=== PATIENT | male | born 1935 | race Caucasian/White ===

== ENCOUNTER 2020-12-12 06:13 | Day surgery (SDC) | payer MEDICARE, BC ==
[2020-12-10 12:02] LABS: BASOPHILS % (AUTO) 0.6 % (0-1); EOSINOPHILS # (AUTO) 0.1 X10'3 (0-0.9); EOSINOPHILS % (AUTO) 2.8 % (0-6); HEMATOCRIT 41.4 % (42.0-52.0); HEMOGLOBIN 14.2 g/dl (14.0-17.9); LYMPHOCYTES # (AUTO) 0.9 X10'3 (1.1-4.8); LYMPHOCYTES % (AUTO) 21.7 % (21-51); MEAN CORPUSCULAR HEMOGLOBIN 33.4 PG (27.0-31.0); MEAN CORPUSCULAR HGB CONC 34.3 g/dL (33.0-36.5); MEAN CORPUSCULAR VOLUME 97.4 FL (78-98); MEAN PLATELET VOLUME 8.7 FL (7.4-10.4); MONOCYTES # (AUTO) 0.4 X10'3 (0-0.9); MONOCYTES % (AUTO) 10.6 % (2-12); NEUTROPHILS # (AUTO) 2.6 X10'3 (1.8-7.7); NEUTROPHILS % (AUTO) 64.3 % (42-75); PLATELET COUNT 119 X10'3 (140-440); RED BLOOD COUNT 4.25 X10'6 (4.70-6.10); RED CELL DISTRIBUTION WIDTH 13.4 % (11.5-14.5); WHITE BLOOD COUNT 4.1 X10'3 (4.5-11.0)
[2020-12-10 12:14] LABS: PARTIAL THROMBOPLASTIN TIME 25 SECONDS (22-32)
[2020-12-10 12:16] LABS: ALANINE AMINOTRANSFERASE 15 U/L (12-78); ALBUMIN 3.5 G/DL (3.4-5.0); ALBUMIN/GLOBULIN RATIO 0.9 (1.1-1.5); ALKALINE PHOSPHATASE 65 IU/L (46-116); ANION GAP 7 (8-16); ASPARTATE AMINO TRANSFERASE 16 U/L (10-37); BILIRUBIN,TOTAL 0.5 MG/DL (0.1-1.0); BLOOD UREA NITROGEN 15 MG/DL (7-18); BUN/CREATININE RATIO 13.2 (5.4-32.0); CALCIUM 8.6 MG/DL (8.5-10.1); CHLORIDE 105 MMOL/L (99-107); CREATININE 1.14 MG/DL (0.60-1.10); GLUCOSE 91 MG/DL (70-104); POTASSIUM 4.4 MMOL/L (3.5-5.1); SODIUM 142 MMOL/L (135-145); TOTAL CARBON DIOXIDE 29.9 MMOL/L (24-32); TOTAL PROTEIN 7.2 G/DL (6.4-8.2); eGFR 61 ML/MIN
[2020-12-12] VITALS (11 sets, daily range): BP systolic 123–160; BP diastolic 70–85
[~2020-12-12] VITALS: Ht 177.8 cm; Wt 101.2 kg
[~2020-12-12 06:13] MED LIST: CIPR-260 PO; FINA5TAB11 PO; METH1TAB32 PO; SIMV20TA PO; TAMS0.4C32 PO
[2020-12-12] MEDS ORDERED: GABA300T25 PO (06:36)
[2020-12-12] MEDS ORDERED: BUPR-317 PO (06:36)
[2020-12-12] MEDS ORDERED: normal saline 1,000 ML IV SCH (06:40)
[2020-12-12] MEDS ORDERED: LORazepam 0.5 MG tablet PO PRN (06:40)
[2020-12-12] MEDS ORDERED: diphenhydrAMINE 25mg capsule PO PRN (06:40)
[2020-12-12] MEDS ORDERED: nitroGLYCERIN 0.4mg SUBLingual tab SL PRN (06:40)
[2020-12-12] MEDS ORDERED: midazolam 1 mg/ML 2ml injection ONE (08:16)
[2020-12-12] MEDS ORDERED: iohexol 350 MG/ML 50ML vial IV ONE ×2 (08:17→09:11)
[2020-12-12] MEDS ORDERED: LIDOcaine 1% (10mg/ml)w/preservative injection 20ml MDV ONE (08:17)
[2020-12-12] MEDS ORDERED: iohexol 350MG/ML 100ml bottle IV ONE (08:17)
[2020-12-12] MEDS ORDERED: fentaNYL/PF 50MCG/1 ML 2ML syringe ONE (08:17)
[2020-12-12] MEDS ORDERED: OXAZEpam 15mg capsule PO PRN (10:00)
[2020-12-12] MEDS ORDERED: ondansetron/PF 4mg/2ml inj IV PRN (10:00)
[2020-12-12] MEDS ORDERED: proCHLORperazine 10 MG/2 ml inj IV PRN (10:00)
[2020-12-12] MEDS ORDERED: HYDROcodone/acetaminophen 10/325mg tab PO PRN (10:00)
[2020-12-12] MEDS ORDERED: HYDROcodone/acetaminophen 5mg/325mg tablet PO PRN (10:00)
== END 2020-12-12 16:00 | disposition home or self-care (01) ==
LOC: SSTAY O 06:13
PROVIDERS: ATTEND Internal Medicine Cardiovascular Disease
DX: R94.39 Abnormal result of other cardiovascular function study (principal); I25.119 Atherosclerotic heart disease of native coronary artery with unspecified angina pectoris; I10 Essential (primary) hypertension; E78.5 Hyperlipidemia, unspecified; J44.9 Chronic obstructive pulmonary disease, unspecified; Z87.891 Personal history of nicotine dependence; Z79.01 Long term (current) use of anticoagulants; Z79.899 Other long term (current) drug therapy
CPT/HCPCS: 36415; 71046; 80053; 85025; 85610; 85730; 93005; 93458; 93567; 99152; C1760; C1769; J1644; J2001; J2250; J3010; J7030; Q0163; Q9967; 99153; A4620; A6258